=== PATIENT | male | born 1970 | race Caucasian/White ===

== ENCOUNTER 2018-09-29 11:03 | Emergency (ER) | payer OTHER ==
[2018-09-29 12:46] LABS: Absolute Lymphocytes (CBC) 2.2 K/uL (0.7-4.9); Absolute Monocytes 0.9 K/uL (0.1-1.3); Absolute Neutrophil 3.5 K/uL (1.8-8.0); Basophils % 1.3 % (0-1.3); Eosinophils % 3.4 % (0-4.4); Hematocrit 47.4 % (39.6-49.0); Lymphocytes % 31.8 % (15.3-44.8); MPV 8.4 fL (7.6-11.3); Monocytes % 12.6 % (3.3-12.3); RBC Red Blood Cell Count 5.13 M/uL (4.33-5.43)
[2018-09-29 13:16] LABS: Albumin 4.5 g/dL (3.4-5.0); Bilirubin Total 0.6 mg/dL (0.2-1.0); Potassium 3.9 mmol/L (3.5-5.1); Protein, Total 8.5 g/dL (6.4-8.2)
--- NOTE | 2018-09-29 13:36 | ER ---
Nurse's Notes [facility] Name: Joe Ortega Age: 48 yrs Sex: Male : 1970 Arrival Date: 09/29/2018 Time: 11:07 Bed 16 Private MD: Diagnosis: Malaise and fatigue Presentation: 09/29 11:17 Presenting complaint: Patient states: fatigue, generalized weakness, tingling to brenda aa5 arms and legs specially during the night, pt reports pain to whole body that began months ago and got worse over the last 2-3 days ago. pt reports nausea x 2 days ago, denies vomiting, reports diarrhea yesterday. Pt states "I just feel like something is wrong and my dry skin is flaring up". Transition of care: patient was not received from another setting of care. Onset of symptoms was 2018. Risk Assessment: Do you want to hurt yourself or someone else? Patient reports no desire to harm self or others. Initial Sepsis Screen: Does the patient meet any 2 criteria? No. Patient's initial sepsis screen is negative. Does the patient have a suspected source of infection? No. Patient's initial sepsis screen is negative. Care prior to arrival: None. 11:17 Method Of Arrival: Ambulatory aa5 11:17 Acuity: LYNNE 3 aa5 Triage Assessment: 13:31 General: Appears in no apparent distress. GI: Reports weakness. tw2 Historical: - Allergies: 11:21 No Known Allergies; aa5 - Home Meds: 11:21 Clonidine Oral [Active]; losartan oral oral [Active]; Clonazepam Oral [Active]; omega-3 aa5 fatty acids oral oral [Active]; Omeprazole Oral [Active]; - PMHx: 11:21 Hyperlipidemia; Hypertension; Anxiety; Acid Reflux; aa5 12:13 high trigylerides; tw2 - PSHx: 11:21 fistula repair; aa5 - Immunization history:: Flu vaccine is not up to date. - Social history:: Smoking status: Patient uses tobacco products, 1 pack a week , Patient uses alcohol, on a daily basis. - Ebola Screening: : No symptoms or risks identified at this time. Screenin:12 Abuse screen: Denies threats or abuse. Nutritional screening: No deficits noted. tw2 Tuberculosis screening: No symptoms or risk factors identified. Fall Risk None identified. Assessment: 11:55 General: Appears in no apparent distress. Behavior is anxious. Pain: Denies pain. tw2 Neuro: Level of Consciousness is awake, alert, obeys commands, Oriented to person, place, time, situation. Cardiovascular: Heart tones S1 S2 Patient's skin is warm and dry. Respiratory: Airway is patent Respiratory effort is even, unlabored, Respiratory pattern is regular, symmetrical, Breath sounds are clear bilaterally. GI: Abdomen is flat, distended, Bowel sounds present X 4 quads. Abd is soft X 4 quads. : No signs and/or symptoms were reported regarding the genitourinary system. EENT: No signs and/or symptoms were reported regarding the EENT system. Derm: Skin is dry, Reports increased dryness. Musculoskeletal: Range of motion: intact in all extremities. 13:13 Reassessment: Patient appears in no apparent distress at this time. Patient and/or jl7 family updated on plan of care and expected duration. Pain level reassessed. Patient is alert, oriented x 3, equal unlabored respirations, skin warm/dry/pink. 13:51 Reassessment: Patient appears in no apparent distress at this time. Patient and/or tw2 family updated on plan of care and expected duration. Pain level reassessed. Patient is alert, oriented x 3, equal unlabored respirations, skin warm/dry/pink. Vital Signs: 11:21 BP 142 / 99; Pulse 84; Resp 18 S; Temp 98.1(TE); Pulse Ox 99% on R/A; Weight 108.86 kg aa5 (R); Height 6 ft. 3 in. (190.50 cm) (R); Pain 5/10; 12:30 BP 159 / 97; Pulse 58; Resp 16 S; Pulse Ox 100% on R/A; jl7 13:11 BP 134 / 86; Pulse 61; Resp 16 S; Pulse Ox 100% on R/A; jl7 11:21 Body Mass Index 30.00 (108.86 kg, 190.50 cm) aa5 ED Course: 11:07 Patient arrived in ED. mr 11:17 Arm band placed on. aa5 11:19 Triage completed. aa5 11:55 Edd aMddox NP is PHCP. pm1 11:55 Robert Magallanes MD is Attending Physician. pm1 11:55 Bed in low position. Call light in reach. cardiac surgeon on. Pulse ox on. NIBP on. tw2 12:11 Geno Millan, RN is Primary Nurse. tw2 12:34 Inserted saline lock: 20 gauge in left antecubital area, using aseptic technique. Blood tw2 collected. 13:35 CBC with Diff Sent. tw2 13:51 No provider procedures requiring assistance completed. IV discontinued, intact, tw2 bleeding controlled, No redness/swelling at site. Pressure dressing applied. Administered Medications: No medications were administered Outcome: 13:35 Discharge ordered by MD. pm1 13:51 Discharged to home ambulatory, with family. tw2 13:51 Condition: stable 13:51 Discharge instructions given to patient, family, Instructed on discharge instructions, follow up and referral plans. Demonstrated understanding of instructions, follow-up care. 13:52 Patient left the ED. tw2 Signatures: Bettye Mackey mr Olivarez, Jenise, RN RN aa5 Edd Maddox NP PHOTOGRAPHIC ENLARGER OPERATOR pm1 Geno Millan, RN RN tw2 Mulu Anaya RN RN jl7
--- NOTE | 2018-09-29 13:37 | EDPHYS ---
Physician Documentation [facility] Name: Joe Ortega Age: 48 yrs Sex: Male : 1970 Arrival Date: 09/29/2018 Time: 11:07 Bed 16 Private MD: ED Physician Robert Magallanes HPI: 09/29 13:00 This 48 yrs old Male presents to ER via Ambulatory with complaints of General pm1 Weakness. 13:00 The patient presents to the emergency department with weakness of the entire body, pm1 generalized weakness. Onset: The symptoms/episode began/occurred 3 day(s) ago. Associated signs and symptoms: Pertinent positives: nausea, Pertinent negatives: fever, headache, chest pain, shortness of breath. Severity of symptoms: Pain is currently a 0 / 10. The patient has not recently seen a physician. Patient presenting to the ER with complaints of generalized weakness for the past 3 days. Prior history of low testosterone. Currently not taking any hormone replacement therapy. Also complaining of dry skin that has been present since childhood. Historical: - Allergies: 11:21 No Known Allergies; aa5 - Home Meds: 11:21 Clonidine Oral [Active]; losartan oral oral [Active]; Clonazepam Oral [Active]; omega-3 aa5 fatty acids oral oral [Active]; Omeprazole Oral [Active]; - PMHx: 11:21 Hyperlipidemia; Hypertension; Anxiety; Acid Reflux; aa5 12:13 high trigylerides; tw2 - PSHx: 11:21 fistula repair; aa5 - Immunization history:: Flu vaccine is not up to date. - Social history:: Smoking status: Patient uses tobacco products, 1 pack a week , Patient uses alcohol, on a daily basis. - Ebola Screening: : No symptoms or risks identified at this time. ROS: 13:00 Eyes: Negative for injury, pain, redness, and discharge, ENT: Negative for injury, pm1 pain, and discharge. 13:00 Neck: Negative for injury, pain, and swelling, Cardiovascular: Negative for chest pain, palpitations, and edema, Respiratory: Negative for shortness of breath, cough, wheezing, and pleuritic chest pain, Abdomen/GI: Negative for abdominal pain, nausea, vomiting, diarrhea, and constipation, Back: Negative for injury and pain, : Negative for injury, bleeding, discharge, and swelling, MS/Extremity: Negative for injury and deformity. 13:00 Neuro: Negative for headache, weakness, numbness, tingling, and seizure. 13:00 Constitutional: Positive for malaise, Negative for chills, fever, poor PO intake. 13:00 Skin: Positive for rash, of the right arm, left arm, right leg and left leg. Exam: 13:00 Constitutional: This is a well developed, well nourished patient who is awake, alert, pm1 and in no acute distress. Head/Face: Normocephalic, atraumatic. Eyes: Pupils equal round and reactive to light, extra-ocular motions intact. Lids and lashes normal. Conjunctiva and sclera are non-icteric and not injected. Cornea within normal limits. Periorbital areas with no swelling, redness, or edema. ENT: Nares patent. No nasal discharge, no septal abnormalities noted. Tympanic membranes are normal and external auditory canals are clear. Oropharynx with no redness, swelling, or masses, exudates, or evidence of obstruction, uvula midline. Mucous membranes moist. Neck: Trachea midline, no thyromegaly or masses palpated, and no cervical lymphadenopathy. Supple, full range of motion without nuchal rigidity, or vertebral point tenderness. No Meningismus. Chest/axilla: Normal chest wall appearance and motion. Nontender with no deformity. No lesions are appreciated. Cardiovascular: Regular rate and rhythm with a normal S1 and S2. No gallops, murmurs, or rubs. Normal PMI, no JVD. No pulse deficits. Respiratory: Lungs have equal breath sounds bilaterally, clear to auscultation and percussion. No rales, rhonchi or wheezes noted. No increased work of breathing, no retractions or nasal flaring. Abdomen/GI: Soft, non-tender, with normal bowel sounds. No distension or tympany. No guarding or rebound. No evidence of tenderness throughout. Back: No spinal tenderness. No costovertebral tenderness. Full range of motion. 13:00 MS/ Extremity: Pulses equal, no cyanosis. Neurovascular intact. Full, normal range of motion. 13:00 Skin: Appearance: normal except for affected area, dry skin present to extermities. 13:00 Neuro: Orientation: is normal, Motor: is normal, Sensation: is normal, no obvious gross deficits. Vital Signs: 11:21 BP 142 / 99; Pulse 84; Resp 18 S; Temp 98.1(TE); Pulse Ox 99% on R/A; Weight 108.86 kg aa5 (R); Height 6 ft. 3 in. (190.50 cm) (R); Pain 5/10; 12:30 BP 159 / 97; Pulse 58; Resp 16 S; Pulse Ox 100% on R/A; jl7 13:11 BP 134 / 86; Pulse 61; Resp 16 S; Pulse Ox 100% on R/A; jl7 11:21 Body Mass Index 30.00 (108.86 kg, 190.50 cm) aa5 MDM: 12:15 Patient medically screened. pm1 13:34 Data reviewed: vital signs. Data interpreted: Pulse oximetry: on room air is 100 %. pm1 Interpretation: normal. Counseling: I had a detailed discussion with the patient and/or guardian regarding: the historical points, exam findings, and any diagnostic results supporting the discharge/admit diagnosis, lab results, the need for outpatient follow up, to return to the emergency department if symptoms worsen or persist or if there are any questions or concerns that arise at home. 09/29 12:26 Order name: CBC with Diff pm1 09/29 12:26 Order name: CMP; Complete Time: 13:20 pm1 09/29 12:26 Order name: Urine Dipstick-Ancillary (obtain specimen); Complete Time: 13:29 pm1 09/29 12:27 Order name: CBC with Automated Diff; Complete Time: 13:12 EDMS 09/29 12:44 Order name: IV Start; Complete Time: 12:44 tw2 09/29 13:29 Order name: Urine Dipstick--Ancillary (enter results); Complete Time: 13:50 kj1 Administered Medications: No medications were administered Disposition: 09/30 07:15 Co-signature as Attending Physician, Robert Magallanes MD I agree with the assessment and kdr plan of care. Disposition: 09/29/18 13:35 Discharged to Home. Impression: Malaise and fatigue. - Condition is Stable. - Discharge Instructions: Fatigue. - Medication Reconciliation Form, Thank You Letter, Antibiotic Education, Prescription Opioid Use, Work release form form. - Follow up: Emergency Department; When: As needed; Reason: Worsening of condition. Follow up: Private Physician; When: 2 - 3 days; Reason: Recheck today's complaints, Continuance of care, Re-evaluation by your physician. - Problem is new. - Symptoms have improved. Signatures: Dispatcher [employer] EDMS Robert Magallanes MD MD kdr Calderon, Audri RN RN aa5 Edd Maddox, WHARF TENDER WHARF TENDER pm1 Geno Millan RN RN tw2 Corrections: (The following items were deleted from the chart) 09/29 13:52 13:35 09/29/2018 13:35 Discharged to Home. Impression: Malaise and fatigue. Condition tw2 is Stable. Forms are Work release form, Medication Reconciliation Form, Thank You Letter, Antibiotic Education, Prescription Opioid Use. Follow up: Emergency Department; When: As needed; Reason: Worsening of condition. Follow up: Private Physician; When: 2 - 3 days; Reason: Recheck today's complaints, Continuance of care, Re-evaluation by your physician. Problem is new. Symptoms have improved. pm1
[2018-09-29 13:47] LABS: Urine Blood TRACE (NEG); Urine Glucose NEGATIVE (NEG); Urine Protein 1+ (NEG)
== END 2018-09-29 13:52 | disposition home or self-care (01) ==
LOC: ER 11:03
DX: R53.81 Other malaise (principal); R53.83 Other fatigue; E78.5 Hyperlipidemia, unspecified; I10 Essential (primary) hypertension; F41.9 Anxiety disorder, unspecified
CPT/HCPCS: 36415; 80053; 81003; 85025; 99284

== ENCOUNTER 2019-02-02 12:02 | Emergency (ER) | payer OTHER ==
--- NOTE | 2019-02-02 13:22 | RAD REPORT ---
EXAM DESCRIPTION: RAD - Chest Pa And Lat (2 Views) - 02/02/2019 1:06 pm CLINICAL HISTORY: Cough, shortness of breath COMPARISON: None. TECHNIQUE: PA and lateral views of the chest were obtained. FINDINGS: The lungs are clear. Heart size is normal and central vasculature is within normal limit s. No pleural effusion or pneumothorax seen. No acute bony finding noted. No aortic abnormality. IMPRESSION: No acute cardiopulmonary process.
--- NOTE | 2019-02-02 13:33 | ER ---
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 Transition of care: patient was not received from another setting of care. Onset of symptoms. Risk Assessment: Do you want to hurt yourself or someone else? Patient reports no desire to harm self or others. Initial Sepsis Screen: Does the patient meet any 2 criteria? No. Patient's initial sepsis screen is negative. Does the patient have a suspected source of infection? No. Patient's initial sepsis screen is negative. Care prior to arrival: None. 12:09 Method Of Arrival: Ambulatory 12:09 Acuity: LYNNE 4 hj Historical: - Allergies: 12:11 No Known Allergies; hj - PMHx: 12:11 acid reflux; Anxiety; high trigylerides; Hyperlipidemia; Hypertension; hj - PSHx: 12:11 fistula repair; hj - Immunization history:: Adult Immunizations up to date. - Social history:: Smoking status: Patient/guardian denies using tobacco. - Ebola Screening: : No symptoms or risks identified at this time. Screenin:20 Abuse screen: Denies threats or abuse. Denies injuries from another. Nutritional hb screening: No deficits noted. Tuberculosis screening: No symptoms or risk factors identified. Fall Risk None identified. Assessment: 12:25 General: Appears in no apparent distress. Behavior is calm, cooperative. Pain: Pain hb currently is 5 out of 10 on a pain scale. Neuro: Level of Consciousness is awake, alert, obeys commands, Oriented to person, place, time, situation. Cardiovascular: Capillary refill < 3 seconds Patient's skin is warm and dry. Respiratory: Reports cough that is productive, Airway is patent Respiratory effort is even, unlabored, Respiratory pattern is regular, symmetrical, Breath sounds are clear bilaterally. GI: No signs and/or symptoms were reported involving the gastrointestinal system. : No signs and/or symptoms were reported regarding the genitourinary system. EENT: Reports sore throat. Derm: Skin is intact, is healthy with good turgor. Musculoskeletal: No signs and/or symptoms reported regarding the musculoskeletal system. 13:50 Reassessment: Patient appears in no apparent distress at this time. Patient and/or tw2 family updated on plan of care and expected duration. Pain level reassessed. Patient is alert, oriented x 3, equal unlabored respirations, skin warm/dry/pink. Vital Signs: 12:11 BP 146 / 91; Pulse 72; Resp 18; Temp 98.2(TE); Pulse Ox 97% on R/A; Weight 108.86 kg; hj Height 6 ft. 3 in. (190.50 cm); Pain 7/10; 12:11 Body Mass Index 30.00 (108.86 kg, 190.50 cm) ED Course: 12:06 Patient arrived in ED. as 12:06 Damian Ramirez MD is Private Physician. as 12:10 Triage completed. hj 12:11 Arm band placed on. hj 12:23 Cedric Pratt PA is PHCP. jr8 12:23 Robert Magallanes MD is Attending Physician. jr8 12:45 Patient has correct armband on for positive identification. Call light in reach. hb 13:00 Patient moved to radiology. jb2 13:01 Patient moved back from radiology. jb2 13:02 XRAY Chest Pa And Lat (2 Views) In Process Unspecified. EDMS 13:32 Damian Ramirez MD is Referral Physician. jr8 13:50 No provider procedures requiring assistance completed. Patient did not have IV access tw2 during this emergency room visit. Administered Medications: No medications were administered Outcome: 13:32 Discharge ordered by . jr8 13:50 Discharged to home ambulatory. tw2 13:50 Condition: stable 13:50 Discharge instructions given to patient, Instructed on discharge instructions, follow up and referral plans. medication usage, Demonstrated understanding of instructions, follow-up care, medications, Prescriptions given X 3. 13:51 Patient left the ED. tw2 Signatures: Dispatcher [employer] EDMS Rahul Anton jb2 Deepa De La Fuente as Cedric Pratt PA PA jr8 Tony Larson RN RN hj Yazmin Mann RN RN Geno Millan RN RN tw2 Corrections: (The following items were deleted from the chart) 12:12 12:11 Pulse 72bpm; Resp 18bpm; Pulse Ox 97% RA; Temp 98.2F Temporal; 108.86 kg; Height 6 ft. 3 in.; BMI: 30.0; Pain 7/10; hj
--- NOTE | 2019-02-02 13:33 | EDPHYS ---
Physician Documentation [facility] Name: Joe Ortega Age: 48 yrs Sex: Male : 1970 Arrival Date: 02/02/2019 Time: 12:06 Bed 12 Private MD: Damian Ramirez ED Physician Robert Magallanes HPI: 02/02 12:37 This 48 yrs old Male presents to ER via Ambulatory with complaints of Flu jr8 Symptoms. 12:37 The patient or guardian reports cough, that is intermittent, described as mild, with jr8 productive sputum, that is green. Onset: The symptoms/episode began/occurred gradually, 1 week(s) ago. Severity of symptoms: At their worst the symptoms were mild, in the emergency department the symptoms are unchanged. Modifying factors: The symptoms are alleviated by nothing, the symptoms are aggravated by nothing. Associated signs and symptoms: Pertinent positives: sore throat. The patient has not experienced similar symptoms in the past. The patient has not recently seen a physician. also having body aches, chills, and headaches . Historical: - Allergies: 12:11 No Known Allergies; hj - PMHx: 12:11 acid reflux; Anxiety; high trigylerides; Hyperlipidemia; Hypertension; hj - PSHx: 12:11 fistula repair; hj - Immunization history:: Adult Immunizations up to date. - Social history:: Smoking status: Patient/guardian denies using tobacco. - Ebola Screening: : No symptoms or risks identified at this time. ROS: 12:37 Eyes: Negative for injury, pain, redness, and discharge, Neck: Negative for injury, jr8 pain, and swelling, Cardiovascular: Negative for chest pain, palpitations, and edema, Abdomen/GI: Negative for abdominal pain, nausea, vomiting, diarrhea, and constipation, Back: Negative for injury and pain, MS/Extremity: Negative for injury and deformity, Skin: Negative for injury, rash, and discoloration, Neuro: Negative for headache, weakness, numbness, tingling, and seizure. 12:37 ENT: Positive for sore throat. 12:37 Respiratory: Positive for cough, with green sputum, Negative for dyspnea on exertion, shortness of breath, wheezing. Exam: 12:37 Eyes: Pupils equal round and reactive to light, extra-ocular motions intact. Lids and jr8 lashes normal. Conjunctiva and sclera are non-icteric and not injected. Cornea within normal limits. Periorbital areas with no swelling, redness, or edema. ENT: Nares patent. No nasal discharge, no septal abnormalities noted. Tympanic membranes are normal and external auditory canals are clear. Oropharynx with no redness, swelling, or masses, exudates, or evidence of obstruction, uvula midline. Mucous membranes moist. Neck: Trachea midline, no thyromegaly or masses palpated, and no cervical lymphadenopathy. Supple, full range of motion without nuchal rigidity, or vertebral point tenderness. No Meningismus. Cardiovascular: Regular rate and rhythm with a normal S1 and S2. No gallops, murmurs, or rubs. Normal PMI, no JVD. No pulse deficits. Respiratory: Lungs have equal breath sounds bilaterally, clear to auscultation and percussion. No rales, rhonchi or wheezes noted. No increased work of breathing, no retractions or nasal flaring. Abdomen/GI: Soft, non-tender, with normal bowel sounds. No distension or tympany. No guarding or rebound. No evidence of tenderness throughout. Back: No spinal tenderness. No costovertebral tenderness. Full range of motion. Skin: Warm, dry with normal turgor. Normal color with no rashes, no lesions, and no evidence of cellulitis. MS/ Extremity: Pulses equal, no cyanosis. Neurovascular intact. Full, normal range of motion. Neuro: Awake and alert, GCS 15, oriented to person, place, time, and situation. Cranial nerves II-XII grossly intact. Motor strength 5/5 in all extremities. Sensory grossly intact. Cerebellar exam normal. Normal gait. Vital Signs: 12:11 BP 146 / 91; Pulse 72; Resp 18; Temp 98.2(TE); Pulse Ox 97% on R/A; Weight 108.86 kg; hj Height 6 ft. 3 in. (190.50 cm); Pain 7/10; 12:11 Body Mass Index 30.00 (108.86 kg, 190.50 cm) MDM: 12:24 Patient medically screened. jr8 13:31 Data reviewed: vital signs, nurses notes, lab test result(s), radiologic studies, plain jr8 films, and as a result, I will discharge patient. Data interpreted: Pulse oximetry: on room air is 97 %. Interpretation: normal. Counseling: I had a detailed discussion with the patient and/or guardian regarding: the historical points, exam findings, and any diagnostic results supporting the discharge/admit diagnosis, lab results, radiology results, the need for outpatient follow up, a family practitioner, to return to the emergency department if symptoms worsen or persist or if there are any questions or concerns that arise at home. 02/02 12:37 Order name: Strep; Complete Time: 13:40 jr8 02/02 13:38 Order name: Throat Culture [facility] 02/02 12:37 Order name: XRAY Chest Pa And Lat (2 Views); Complete Time: 13:31 jr8 Administered Medications: No medications were administered Disposition: 02/03 06:46 Co-signature as Attending Physician, Robert Magallanes MD I agree with the assessment and kdr plan of care. Disposition: 02/02/19 13:32 Discharged to Home. Impression: Acute upper respiratory infection, unspecified. - Condition is Stable. - Discharge Instructions: Upper Respiratory Infection, Adult. - Prescriptions for Prednisone 20 mg Oral Tablet - take 1 tablet by ORAL route once daily for 5 days; 5 tablet. Zithromax Z- Avery 250 mg Oral Tablet - take 1 tablet by ORAL route as directed for 5 days Day 1 - take two (2) tablets one time. Day 2, 3, 4 , 5 take one (1) tablet once daily.; 6 tablet. Guaifenesin AC 10- 100 mg/5 mL Oral Liquid - take 10 milliliter by ORAL route every 4 hours As needed; 240 milliliter. - Medication Reconciliation Form, Thank You Letter, Antibiotic Education, Prescription Opioid Use, Work release form form. - Follow up: Damian Ramirez MD; When: 5 - 6 days; Reason: Recheck today's complaints, Continuance of care, Re-evaluation by your physician. - Problem is new. - Symptoms have improved. Signatures: Dispatcher [employer] [facility] Robert Magallanes MD MD kdr Roszak, Josh, PA PA jr8 Tony Larson RN RN Yazmin Mcdonough RN RN Geno Harman RN RN tw2 Corrections: (The following items were deleted from the chart) 02/02 13:51 13:32 02/02/2019 13:32 Discharged to Home. Impression: Acute upper respiratory tw2 infection, unspecified. Condition is Stable. Forms are Medication Reconciliation Form, Thank You Letter, Antibiotic Education, Prescription Opioid Use. Follow up: Damian Ramirez; When: 5 - 6 days; Reason: Recheck today's complaints, Continuance of care, Re-evaluation by your physician. Problem is new. Symptoms have improved. jr8
== END 2019-02-02 13:51 | disposition home or self-care (01) ==
LOC: ER 12:02
DX: J06.9 Acute upper respiratory infection, unspecified (principal); E78.5 Hyperlipidemia, unspecified; I10 Essential (primary) hypertension
CPT/HCPCS: 71046; 87070; 87081; 99283